=== PATIENT | female | born 1980 | race Caucasian/White ===

== ENCOUNTER 2018-05-29 13:10 | Emergency (ER) | payer MEDICAID ==
[~2018-05-29] VITALS: Wt 78.4 kg
[2018-05-29 13:13] VITALS: BP 130/62; PULSE 86; RESP 20
[2018-05-29] MEDS ORDERED: CEPH-443 PO (16:19)
--- NOTE | 2018-05-29 17:19 | ERD ---
ER Documentation Chief Complaint Chief Complaint sent by OBGyn for lab work HPI Patient is a 37-year-old female, approximately 16 weeks , presents ER for needing a ultrasound. Patient states she was sent to the ER by her [employer] doctor Noe given that heart tones were not detected in office today. Patient denies any pelvic pain or vaginal bleeding. Patient denies any nausea, vomiting, abdominal pain or diarrhea. Patient is G2, P1. Last menstrual period 9-16-18. ROS All systems reviewed and are negative except as per history of present illness. Medications Home Meds Active Scripts Cephalexin* (Keflex*) 500 Mg Capsule, 500 MG PO TID for 7 Days, CAP Prov:GIOVANNI MERCHANT PA-C 05/29/18 FmHx Family History: No diabetes Physical Exam Vitals Vital Signs Date Temp Pulse Resp B/P (MAP) Pulse Ox O2 O2 Flow FiO2 Time Delivery Rate 05/29/18 97.8 86 20 130/62 98 13:13 (84) Physical Exam GENERAL: Well-developed, well-nourished female. Appears in no acute distress. HEAD: Normocephalic, atraumatic. EYES: Pupils are equally reactive bilaterally. EOMs grossly intact. No conjunctival erythema. ENT: Moist mucous membranes. No uvula deviation. No kissing tonsils. NECK: Supple. No meningismus. Normal range of motion of the neck. LUNG: Clear to auscultation bilaterally. No rhonchi, wheezing, rales or coarse breath sounds. HEART: Regular rate and rhythm. No murmurs, rubs or gallops. ABDOMEN: Gravid abdomen. Positive bowel sounds in all four quadrants. No rebound tenderness, no guarding. (-) McBurney's point tenderness. No CVA tenderness. EXTREMITIES: Equal pulses bilaterally. No peripheral clubbing, cyanosis or edema. No unilateral leg swelling. NEUROLOGIC: Alert and oriented. Moving all four extremities without any difficulty. Normal speech. Steady gait. SKIN: Normal color. Warm and dry. No rashes or lesions. Result Diagram: 05/29/18 1450 Results 24 hrs Laboratory Tests Test 05/29/18 14:50 White Blood Count 11.5 10^3/ul Red Blood Count 5.04 10^6/ul Hemoglobin 12.2 g/dl Hematocrit 37.7 % Mean Corpuscular Volume 74.8 fl Mean Corpuscular Hemoglobin 24.2 pg Mean Corpuscular Hemoglobin Concent 32.4 g/dl Red Cell Distribution Width 18.3 % Platelet Count 277 10^3/UL Mean Platelet Volume 12.6 fl Immature Granulocytes % 0.800 % Neutrophils % 77.0 % Lymphocytes % 14.3 % Monocytes % 5.8 % Eosinophils % 1.8 % Basophils % 0.3 % Nucleated Red Blood Cells % 0.0 /100WBC Immature Granulocytes # 0.090 10^3/ul Neutrophils # 8.9 10^3/ul Lymphocytes # 1.6 10^3/ul Monocytes # 0.7 10^3/ul Eosinophils # 0.2 10^3/ul Basophils # 0.0 10^3/ul Nucleated Red Blood Cells # 0.0 10^3/ul Urine Color YELLOW Urine Clarity CLEAR Urine pH 6.0 Urine Specific [place] 1.019 Urine Ketones TRACE mg/dL Urine Nitrite NEGATIVE mg/dL Urine Bilirubin NEGATIVE mg/dL Urine Urobilinogen NEGATIVE mg/dL Urine Leukocyte Esterase 1+ Naomi/ul Urine Microscopic RBC 2 /HPF Urine Microscopic WBC 11 /HPF Urine Squamous Epithelial Cells MANY /HPF Urine Bacteria FEW /HPF Urine Mucus FEW /HPF Urine Hemoglobin NEGATIVE mg/dL Urine Glucose NEGATIVE mg/dL Urine Total Protein NEGATIVE mg/dl Procedures/MDM ED COURSE: The patient was stable throughout ED course. I kept the patient and/or family informed of laboratory and diagnostic imaging results throughout the ED course. DIAGNOSTIC IMAGING: Read by radiologist. Patient: DEVIN VELASQUEZ : 1980 Age: 37 Sex: F [id number] [id number] DOS: 05/29/18 [facility]8 Ordering MD: GIOVANNI MERCHANT PA-C Location: [facility] Room/Bed: PROCEDURE: US OB. CLINICAL INDICATION: Uncertain size and dates. TECHNIQUE: Multiple sonographic images of the uterus were obtained. The images were reviewed on a PACS workstation. COMPARISON: No prior studies are available for comparison. FINDINGS: There is a single live intrauterine gestation. heart rate is 154 beats per minute. Measurements were made in order to determine age. The results are as follows: BPD = 3.42 cm. HC = 11.71 cm. AC = 11.99 cm. FL = 1.96 cm. Estimated weight is 165 +/- 25 grams. LMP growth percentile is greater than 97 %. Menstrual age by ultrasound dates is 16 weeks 3 days. The estimated date of delivery is 11/10/2018. Maximum vertical pocket of amniotic fluid is 4.0 cm. Position is cephalic and placenta is posterior right grade 0. There is no evidence for an abruption or placenta previa. IMPRESSION: 1. Single live intrauterine gestation of 16 weeks 3 days gestational age by ultrasound dates. 2. The estimated date of delivery is 11/10/2018. RPTAT: QQ .Kolby Lund MD, MD Date Time Electronically viewed and signed by .Kolby Lund MD, MD on 05/29/2018 16:02 .R/ CC: GIOVANNI MERCHANT PA-C [id number] MEDICAL DECISION MAKING: This is a 37-year-old female, G1, P0, presents ER for concerns of needing ultrasound for no heart tones were detected in patients [employer] office. Vital signs were reviewed. Patient was afebrile. Patient was hemodynamically stable. CBC showed WBC count of 12.5, likely slightly elevated secondary to state. UA did show trace ketones, 1+ leukocyte esterase. I will treat patient with course of Keflex for concerns of UTI. Patient's blood type was noted to be O+. Pelvic ultrasound did show single live intrauterine gestation of 16 weeks and 3 days gestational age by ultrasound dates. Patient was advised to follow-up with her [employer] intake ultrasound results back to him. Copy of report provided. Low suspicion for ectopic , ruptured ectopic , molar , subchorionic hematoma, spontaneous , incomplete , complete , missed , placental abruption, placental previa, vasa previa, uterine rupture, anembyronic , pyelonephritis. Patient was nontoxic, non-opening prior to discharge. PRESCRIPTIONS: Keflex DISCHARGE: At this time, patient is stable for discharge and outpatient management. I had a conversation at length with the patient about the concerns of vaginal bleeding during the 1st trimester of . Patient and/or family understands that her vaginal bleeding can be a normal finding or a sign of miscarriage. I have instructed the patient to follow-up with her OBGYN in 1-2 days for further monitoring.. I have instructed the patient to promptly return to the ER at any time for any new or worsening symptoms including increased pain, nausea, vomiting, continued bleeding, weakness, syncope or fever. The patient and/or family expressed understanding of and agreement with this plan. All questions were answered. Home care instructions were provided. Disclaimer: Inadvertent spelling and grammatical errors are likely due to EHR/dictation software use and do not reflect on the overall quality of patient care. Also, please note that the electronic time recorded on this note does not necessarily reflect the actual time of the patient encounter. Departure Diagnosis: Primary Impression: state, gestational carrier Additional Impression: UTI (urinary tract infection) Urinary tract infection type: site unspecified Hematuria presence: without hematuria Qualified Codes: N39.0 - Urinary tract infection, site not specified Condition: Stable Patient Instructions: Pelvic Pain In : Unclear (2-3 Trimester) Referrals: COMMUNITY CLINICS YOU HAVE RECEIVED A MEDICAL SCREENING EXAM AND THE RESULTS INDICATE THAT YOU DO NOT HAVE A CONDITION THAT REQUIRES URGENT TREATMENT IN THE EMERGENCY DEPARTMENT. FURTHER EVALUATION AND TREATMENT OF YOUR CONDITION CAN WAIT UNTIL YOU ARE SEEN IN YOUR DOCTORS OFFICE WITHIN THE NEXT 1-2 DAYS. IT IS YOUR RESPONSIBILITY TO MAKE AN APPOINTMENT FOR FOLOW-UP CARE. IF YOU HAVE A PRIMARY DOCTOR --you should call your primary doctor and schedule an appointment IF YOU DO NOT HAVE A PRIMARY DOCTOR YOU CAN CALL OUR PHYSICIAN REFERRAL HOTLINE AT IF YOU CAN NOT AFFORD TO SEE A PHYSICIAN YOU CAN CHOSE FROM THE FOLLOWING [facility] [address] [facility] [address] [facility] [address] [facility] [facility] [address] [facility] [address] [facility] [address] [facility]. [facility]. [address] [facility]. [facility] YOU HAVE RECEIVED A MEDICAL SCREENING EXAM AND THE RESULTS INDICATE THAT YOU DO NOT HAVE A CONDITION THAT REQUIRES URGENT TREATMENT IN THE EMERGENCY DEPARTMENT. FURTHER EVALUATION AND TREATMENT OF YOUR CONDITION CAN WAIT UNTIL YOU ARE SEEN IN YOUR DOCTORS OFFICE WITHIN THE NEXT 1-2 DAYS. IT IS YOUR RESPONSIBILITY TO MAKE AN APPOINTMENT FOR FOLOW-UP CARE. IF YOU HAVE A PRIMARY DOCTOR --you should call your primary doctor and schedule and appointment IF YOU DO NOT HAVE A PRIMARY DOCTOR YOU CAN CALL OUR PHYSICIAN REFERRAL HOTLINE AT . IF YOU CAN NOT AFFORD TO SEE A PHYSICIAN YOU CAN CHOSE FROM THE FOLLOWING [facility] INSTITUTIONS: [facility] [address] [place] [address] [facility] [address] [place] [address] [facility] [address] [place] [address] [employer] [place] [address] [facility] [address] [place] [address] OFFICE FAX JARED KATE [address] [place] [address] [facility] [address] [place] [address] [facility] [address] [facility], [facility] [address] [address] [address] [place] [address] [facility] [address] [place] [address] [phone] [facility] [address] - ELIE TAMAYO [address], [facility] [address] [address] [address] [facility]. [address], [facility] [place] [address] HAYDEE HANSON [address] [place] [address] Additional Instructions: Call your primary care doctor/ OBGYN TOMORROW for an appointment during the next 1-2 days.See the doctor sooner or return here if your condition worsens before your appointment time. GIOVANNI MERCHANT PA-C May 29, 2018 17:19
== END 2018-05-29 16:31 | disposition home or self-care (01) ==
LOC: FTE 13:10
DX: O23.42 Unspecified infection of urinary tract in pregnancy, second trimester (principal); Z3A.16 16 weeks gestation of pregnancy
CPT/HCPCS: 36415; 76805; 81001; 85025; 86900; 86901; Z7502